=== PATIENT | female | born 1950 | race Caucasian/White ===

== ENCOUNTER → 2018-07-03 15:25 | Outpatient (CLI) | payer MEDICARE, OTHER, SELFPAY ==
--- NOTE | 2018-07-03 | DI.MRI.S_ITS ---
PROCEDURE: MR SHOULDER LT WO CON INDICATIONS: Left shoulder pain radiating from mid arm up into joint. Decreased range of motion TECHNIQUE: Noncontrast oblique coronal T2 fast spin echo with fat saturation, oblique sagittal T1 spin echo and T2 fast spin echo with fat saturation, axial T1 spin echo and T2 fast spin echo with fat saturation through the shoulder. COMPARISON: None. FINDINGS: Image quality: Diagnostic. Rotator cuff: There is extensive irregularity identified involving the subscapularis and supraspinatus tendons with areas of at least moderate grade intrasubstance partial thickness tearing, more prominent near the rotator interval. A small full-thickness tear at the rotator interval is difficult to exclude. There is corresponding prominent tendinopathy of these 2 tendons. Low-grade partial-thickness tearing is evident along the articular surface of the distal infraspinatus tendon is corresponding mild tendinopathy. The teres minor tendon is intact. There is no significant atrophy of the rotator cuff muscles. Bones and bursae: No acute fracture, dislocation, or suspicious osseous lesion is evident involving the osseous structures of the left shoulder. There are moderate degenerative changes of the glenohumeral and acromioclavicular joints. There is a prominent glenohumeral joint effusion, which appears to contain a moderate sized intra-articular joint body within the axillary pouch region, measuring up to approximately 8 mm in diameter. A small amount of fluid is contained within the subacromial subdeltoid bursa. Capsule and soft tissues: Evaluation of the labrum and the glenohumeral ligaments is difficult without intra-articular contrast. No acute injuries are suspected involving the glenohumeral ligaments. There is a small to moderate-sized superior labral tear identified that extends from approximately the 11 o'clock position (anterosuperior) through the 12 o'clock position (superior) and 2 at least the 2 o'clock position (posterosuperior). Blunting on the posteroinferior aspect of the labrum is evident. This may represent additional tearing. The long head of the biceps tendon is positioned within the bicipital groove, but is prominently thickened and irregular along its intra-articular course and its course through the bicipital groove. Prominent amount of fluid is contained within its tendon sheath. IMPRESSION: 1. Irregular at least moderate grade partial-thickness tearing and tendinopathy of the supraspinatus and infraspinatus tendons is more prominent near the rotator interval. The possibility of a small full-thickness tear within this region of the rotator interval is difficult to exclude. 2. Low-grade partial-thickness tearing and mild tendinopathy of the infraspinatus tendon. 3. Small moderate-sized posterosuperior labral tear. 4. Moderate tendinopathy and probable intrasubstance partial thickness tearing of the long head of the biceps tendon. 5. Moderate degenerative changes of the glenohumeral and acromioclavicular joint. 6. Prominent glenohumeral joint effusion containing intra-articular joint bodies. 7. Small amount of fluid within the subacromial subdeltoid bursa may represent mild bursitis. Dictated by: Booker Collins M.D. on 07/03/2018 at 16:02 Approved by: Booker Collins M.D. on 07/03/2018 at 16:07
== END ==
PROVIDERS: Visit Provider Family Medicine
DX: M75.112 Incomplete rotator cuff tear or rupture of left shoulder, not specified as traumatic (principal); M25.512 Pain in left shoulder; S43.492A Other sprain of left shoulder joint, initial encounter; M75.92 Shoulder lesion, unspecified, left shoulder; M19.012 Primary osteoarthritis, left shoulder; M25.412 Effusion, left shoulder
CPT/HCPCS: 73221

== ENCOUNTER 2018-07-30 06:05 | Day surgery (SDC) | payer MEDICARE, OTHER, SELFPAY ==
[2018-07-28 07:31] VITALS: BMI 20.9
[2018-07-30] VITALS (9 sets, daily range): BP systolic 117–147; BP diastolic 73–91; PULSE 80–91; RESP 12–18; TEMP 36.1–36.6; O2SAT 96–100; BMI 20.9
[2018-07-30] MEDS: LACTATED RINGERS 1,000 ML 42 ML IV ×2 (06:55→10:35)
--- NOTE | 2018-07-30 07:43 | PM.PREOP ---
Pre-operative Note Interval Note History & Physical reviewed/Exam performed by Physician: Yes Changes to H&P: No
[2018-07-30] MEDS: fentaNYL 100 MCG/2 ML INJ 50 MCG IV (07:45)
[2018-07-30] MEDS: MIDAZOLAM 2 MG/2 ML VIAL IV (07:50)
[2018-07-30] MEDS: CEFAZOLIN 2 GM/100 ML FROZ.PIGGY IV (08:09)
--- NOTE | 2018-07-30 08:11 | SUR.PREOP ---
Block start time [0745] . Monitoring initiated and maintained throughout procedure. Oxygen and medications given per anesthesiologist instructions. Patient remained stable throughout procedure, no adverse reactions noted. Block end time [0806].
--- NOTE | 2018-07-30 08:47 | SUR.OPER ---
Beach chair on padded OR bed. Head on gel donut secured with tape over gauze. Non-operative arm secured <90 degrees abduction on padded arm board. Pillow under knees. Safety belt at thigh. Cloth tape over blanket over lower legs.
[2018-07-30] MEDS: BUPIVACAINE 0.5% W/ EPI (PF) VIAL 30 ML INJ (08:53)
[2018-07-30] MEDS: SODIUM CHLORIDE IRRIG SOLUTION 3,000 ML, EPINEPHrine 1 MG IRR (08:54)
--- NOTE | 2018-07-30 10:15 | P.OP_ITS ---
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 Post-op diagnosis: same Procedure & Clinicians Procedure: Left shoulder arthroscopic extensive debridement with removal of loose bodies arthroscopically as well as debridement of a partial rotator cuff tear and a subacromial decompression. Same procedure as scheduled: Yes Indications: Partial rotator cuff tear with glenohumeral joint arthritis as well as impingement. MRI findings of loose bodies in the glenohumeral joint. Surgeon: Luis Blanco Pattern Clerk: Piedad Melendez Anesthesia Type: General and Peripheral nerve block Operative Notes Findings: significant arthritic changes to the glenohumeral joint with extensive fraying of the cartilage to both the glenoid and the humeral head. Extensive areas of full-thickness cartilage loss. Significant degenerative changes to the labrum. Signs of a type 1 slap tear. Bicipital anchor still attached. Signs of bicipital tenosynovitis and some mild fraying. Multiple loose bodies in the glenohumeral joint in the inferior pouch. Partial tearing mainly on the articular surface of the supraspinatus. Some partial tearing of the subscapularis. Infraspinatus and teres minor relatively uninvolved. Bursitis in the subacromial and subdeltoid space. Impingement lesion in the acromial arch. Mild arthritic changes to the AC joint. Closure Type: primary Specimen(s): none sent Prosthetic devices, grafts, tissues, transplants, or devices: Single Arthrex anchor Applied: implant(s) Estimated Blood Loss (mL): 5 Blood products transfused: none Procedure in detail: On date of service, Patient was met in the holding area. The operative site was signed and witnessed by the OR staff. The surgeries once again discussed with the patient and any remaining questions they had were answe red fully. Patient was taken back to the operating theater and placed on the operating table in a supine position. Great care was taken to ensure that all bony prominences were properly padded. Patient was then placed into the beach chair position. The head and neck were properly positioned and secured. A timeout was performed verifying patient's name, procedure, and the operative site. The upper extremity was then prepped and draped in the normal sterile fashion. Previously, the bony anatomy and portal sites were marked out as well as injected with Marcaine with epinephrine. An 11 blade was used to make an incision in the posterior aspect of the shoulder. The camera was placed, and a diagnostic shoulder scope was performed. Findings listed above. Next under direct visualization, a anterior portal was made. A shaver was used to do an extensive debridement of the glenohumeral joint. As mentioned above patient had significant arthritic changes to the glenohumeral joint. Multiple loose bodies were debrided out and removed from the glenohumeral joint. Shaver was also used to debride the articular surface of the rotator cuff mainly the supraspinatus. Patient also had significant degenerative changes of the labrum as mentioned above. This was also debrided as well as the type 1 slap tear. Next the camera was placed into the subacromial space. A lateral portal was obtained under direct visualization. A combination of the shaver and vapor wand, a debridement of the inflamed tissue as well as inflamed bursa was performed. The lateral gutter was also cleaned out. This gave us good visualization of the bursal aspect of the rotator cuff as well as the acromial arch. There was an obvious impingement lesion in the acromial arch. Next we turned our attention to the subacromial decompression. Next, a mechanical rasp was then used to do a subacromial decompression. This allowed us to convert the acromion to a type I acromial. This also allowed us to shave down the bony lesion in the acromial space. The rasp was placed into the lateral portal as well as the anterior portal in order to do a complete subacromial decompression. the bursal side of the rotator cuff did not show much signs of any tearing. There was quite a bit of fraying to the articular surface. We consider the possibility of doing a a PASTA repair. We put the camera back into the glenohumeral joint. Two separate suture tack anchors were placed 1 anteriorly 1 posteriorly. We had good fixation of the posterior anchor. The anterior anchor pulled out when we pulled on the suture material. We put in a no other anterior anchor in a different location but still had the same issues. Patient's bone in the anterior aspect of the humeral head was very soft and was not able to hold an anchor with good fixation. it was decided to not perform the PASTA repair due to quality of the bone. There was no sign of any full-thickness rotator cuff tear and it was felt that we had close to 50% tendon thickness still present. At this point, camera was placed back into the subacromial space. Subacromial space was explored once again evaluating the rotator cuff. Shaver was used to debride out any remaining synovitis or inflamed bursa. Shoulder was taken through range of motion and there was no sign of any remaining impingement. Camera and cannulas were removed and the shoulder was cleaned dried dressed. Sutures were used to close the portal sites. Patient was extubated and taken to the PACU in stable condition. Complications: none Condition: stable Disposition: PACU Plan for aftercare: sling will just be for comfort. No restrictions in range of motion.
--- NOTE | 2018-07-30 11:03 | SUR.PHASEII ---
PT TOLERATING JUICE AND CRACKERS, ARM REMAINS IN SLING, ABLE TO WIGGLE FINGERS AND THUMB FREELY, 2 + RADIAL PULSE PALPATED,PT DENIES ANY PAIN OR NAUSEA. WAITING FOR TO RETURN FROM PHARMACY WITH PRESCRIPTIONS.
== END 2018-07-30 11:45 | disposition home or self-care (01) ==
PROVIDERS: PCP Family Medicine; Visit Provider Orthopaedic Surgery
PROC: (CPT 29827; principal; 2018-07-30 07:45)
DX: S46.012A Strain of muscle(s) and tendon(s) of the rotator cuff of left shoulder, initial encounter (principal); M75.42 Impingement syndrome of left shoulder; M24.012 Loose body in left shoulder; M19.012 Primary osteoarthritis, left shoulder; G89.18 Other acute postprocedural pain; I34.1 Nonrheumatic mitral (valve) prolapse
CPT/HCPCS: 29827; 29823; 29826; 64450; J0171; J0690; J1100; J2250; J2704; J3010

== ENCOUNTER → 2020-10-11 08:58 | Outpatient (CLI) | payer MEDICARE, OTHER, SELFPAY ==
[2020-10-11 13:25] LABS: COVID19 -Nasal RAPID Negative (Negative)
== END ==
PROVIDERS: PCP Family Medicine; Visit Provider Physician Assistant
DX: Z01.812 Encounter for preprocedural laboratory examination (principal); Z20.822 Contact with and (suspected) exposure to COVID-19
CPT/HCPCS: 87635; C9803

== ENCOUNTER 2020-10-12 11:36 | Day surgery (SDC) | payer MEDICARE, OTHER, SELFPAY ==
[2020-10-09 14:58] VITALS: BMI 21.6
[2020-10-12] VITALS (11 sets, daily range): BP systolic 111–163; BP diastolic 77–90; PULSE 86–104; RESP 10–20; TEMP 36.2–37.2; O2SAT 95–99; BMI 21.6
--- NOTE | 2020-10-12 12:55 | PM.PREOP ---
Pre-operative Note COVID-19 COVID-19 status: Negative Interval Note History & Physical reviewed/Exam performed by Physician: Yes Changes to H&P: No
[2020-10-12] MEDS: LACTATED RINGERS 1,000 ML 42 ML IV ×2 (13:02→13:46)
[2020-10-12] MEDS: CEFAZOLIN 1 GM VIAL 2 GM IV (13:25)
[2020-10-12] MEDS: BUPIVACAINE 0.5% W/ EPI (PF) 30 ML VIAL INJ (13:47)
--- NOTE | 2020-10-12 13:49 | SUR.OPER ---
Supine on padded OR bed, head on pillow, left arm secured on padded arm boards at <90 degrees abduction,right arm draped free on black hand table legs uncrossed, safety belt at thigh, tape over blanket over lower legs.
--- NOTE | 2020-10-12 15:04 | PM.OP.1 ---
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 Same procedure as scheduled: Yes Indications: Right carpal tunnel, right scaphoid fracture, right scapholunate ligament injury Surgeon: Luis Blanco Click Yes if Unassisted: Yes Anesthesia Type: General Operative Notes Findings: Compression of the median nerve at the carpal tunnel no sign of any significant flattening or hourglassing. Partial healing to the scaphoid waist with no sign of any AVN. No sign of any significant sclerosis. Diastasis at the scapholunate interval with rupture of the scapholunate ligament. No sign of any radiocarpal arthritis. No sign of any carpal collapse. Closure Type: primary Specimen(s): none sent Applied: implant(s) (20 mm AcuTrak standard screw, 2 Arthrex tenodesis anchors.) Estimated Blood Loss (mL): 5 Tourniquet time (min): 70 Procedure in detail: On date of service, the patient was met in the holding area. Patients operative site was signed and witnessed by the OR staff. The surgery was once again discussed with the patient, and any remaining questions they had were answered fully. Patient was taken back to the operating theater and placed on the operating table in a supine position. Great care was taken to ensure that all bony prominences were carefully padded. A well-padded tourniquet was placed up along the upper extremity. A timeout was performed to verify patient's name, procedure, and operative site. The arm was then prepped and draped in the normal sterile fashion. A 15 blade was used to incise through skin In the center of the palm. Pickups and tenotomy scissors were used to dissect down until the palmar fascia was visualized. The palmar fascia was then sharply incised using a 15 blade. This gave us good visualization of the carpal ligament. A small opening was made into the carpal ligament, and a curved hemostat was placed into that opening. A 15 blade was then used to sharply incise the carpal ligament with the structures beneath being protected by the hemostat. Pickups and Metzenbaum scissors were used to complete the decompression both distally and proximally. This provided a complete decompression of the median nerve. The wound was then irrigated and closed with nylon. We then turned our attention to the scaphoid fracture. A hockey-stick type incision was made starting just proximal to Amberly tubercle and then extending along the axis of the scaphoid. 15 blade was used to incise the skin and fascial tissue. This gave us good visualization of the extensor retinaculum. A small split was made into the distal aspect of the retinaculum. This allowed us to retract the third and fourth extensor compartments. This also gave us good visualization of the wrist capsule. The ligaments splitting approach to the carpus was performed. This gave us a nice window allowing us to visualize the scaphoid as well as the scapholunate interval. There is a complete tear of the scapholunate interosseous ligament. Patient had signs of partial healing of the scaphoid waist fracture. No sign of any avascular necrosis. No sign of any significant displacement. A guidewire was placed along the axis of the scaphoid. Guidewire positioning was visualized on multiple views. Once we were satisfied of our guidewire placement, a depth gauge was used to measure length. A 20 mm Acutrak screw was the appropriate length. The drill was used to drill to 20 mm. Next the Acutrak screw was placed providing compression at the fracture site. The joint visualization of screw placement and the screw was buried underneath the cartilage. No sign of any prominent screw. The wound was then copiously irrigated. We then turned our attention to the scapholunate ligament. There was a complete rupture to the scapholunate ligament. But no sign of any radiocarpal arthritic process. K-wire was placed in to the scaphoid and 1 into the lunate and the scapholunate interval was reduced. There was quite a bit of flexion of the scaphoid which was reduced as well as extension of the lunate. These 2 K-wires were then held together to close down any diastasis. Next, 2 guidewires were placed 1 in the lunate and 1 in the scaphoid. C-arm used to verify reduction of the scapholunate interval as well as guidewire positioning. Once we were satisfied with the positioning cannulated drill was used to drill over the 2 guidewires. The bony hole tunnels were then copiously irrigated removing any remaining tissue. An anchor with labral tape was placed in to the scaphoid. Then under tension this was then placed into the 2nd hole into the lunate going across the scapholunate interval. This helped close down any gapping between the scapholunate interval and provided a rather secure repair across the interval. C-arm was brought in to verify maintenance of reduction. We were able to flex and extend the wrist with no abnormal motion of the scapholunate interval been no sign of any diastasis. Good signs of a solid repair of the scapholunate interval. The wound was then copiously irrigated. The capsule was closed and repaired using 3-0 FiberWire. The extensor mechanism was closed with Vicryl recreating the 4th extensor compartment as well as the 3rd and 2nd extensor compartments. The rest of the wound was closed in layered fashion. Patient's hand and arm was cleaned dried and dressed. Patient was placed into a splint and taken to the PACU in stable condition. Complications: none Post-operative Condition: stable Disposition: PACU Plan for aftercare: Patient will be immobilized for a total of 6 weeks. No restrictions of range of motion of the fingers.
--- NOTE | 2020-10-12 15:19 | SUR.PHASEI ---
Dr Mancia here at bedside to see patient.
--- NOTE | 2020-10-12 15:19 | SUR.PHASEI ---
Patient to PACU with Anesth and RN, SBAR report at bedside.
== END 2020-10-12 16:04 | disposition home or self-care (01) ==
PROVIDERS: PCP Family Medicine; Referring Provider Orthopaedic Surgery; Visit Provider Orthopaedic Surgery
PROC: (CPT 25628; principal; 2020-10-12 13:45)
DX: S62.021G Displaced fracture of middle third of navicular [scaphoid] bone of right wrist, subsequent encounter for fracture with delayed healing (principal); S63.391A Traumatic rupture of other ligament of right wrist, initial encounter; G56.01 Carpal tunnel syndrome, right upper limb; W01.0XXA Fall on same level from slipping, tripping and stumbling without subsequent striking against object, initial encounter
CPT/HCPCS: 25440; 64721; J0690; J1100; J2405; J2704; J3010